=== PATIENT | male | born 1955 | race Two or more races ===

== ENCOUNTER 2018-07-16 00:44 | Emergency (ER) | payer MEDICAID, OTHER ==
[~2018-07-16] VITALS: Ht 170.2 cm; Wt 68.0 kg
--- NOTE | 2018-07-16 00:50 | NUR ---
BIB RA. TO ER BED 7. AAOX3. NAD. BREATHING EVEN AND UNLABORED. PT WAS FOUND DOWN ON THE STREET WHICH WAS REPORTED BY BY STANDERS. POSSIBLE ETOH. PT IS TANZANIAN SPEAKING, SUE FROM ADMISSION TRANSLATED FOR PT.
[2018-07-16 01:18] LABS: BASOPHILS # (AUTO) 0.1 /CMM (0.0-0.2); BASOPHILS % (AUTO) 0.5 % (0.0-2.0); WHITE BLOOD COUNT (AUTO) 12.7 K/uL (4.3-11.0)
[2018-07-16 01:21] LABS: HEMATOCRIT 40 % (39-51); HEMOGLOBIN 13.5 g/dL (13.5-17.5); LYMPHOCYTES # (AUTO) 1.3 /CMM (0.8-4.8); LYMPHOCYTES % (AUTO) 10.4 % (20.0-44.0); MEAN CORPUSCULAR HGB CONC 34 g/dl (31.0-36.0); MEAN CORPUSCULAR VOLUME 88 fL (80-96); MONOCYTES % (AUTO) 7.5 % (2.0-12.0); NEUTROPHILS # (AUTO) 6.2 /CMM (1.8-8.9); PLATELET COUNT (AUTO) 211 /CMM (150-450); RED BLOOD CELL COUNT(AUTO) 4.59 MIL/uL (4.5-6.0)
[2018-07-16 01:23] LABS: EOSINOPHILS % (AUTO) 32.6 % (0.0-6.0)
[2018-07-16 01:28] LABS: CALCIUM, SERUM 8.5 mg/dL (8.5-10.1); CARBON DIOXIDE 28 mmol/L (21-32); CHLORIDE 100 mmol/L (98-107); CREATININE 0.7 mg/dL (0.6-1.3); GLUCOSE 125 mg/dL (74-106); SODIUM SERUM 134 mmol/L (136-145); UREA NITROGEN, BLOOD 7 mg/dL (7-18)
[2018-07-16 01:39] LABS: ALANINE AMINOTRANSFERASE 21 U/L (12-78); ALBUMIN 3.4 g/dL (3.4-5.0); ALCOHOL, BLOOD < 3 mg/dL (0-0); ALKALINE PHOSPHATASE 106 U/L (46-116); ASPARTATE AMINOTRANSFERASE 20 U/L (15-37); BILIRUBIN,DIRECT 0.1 mg/dL (0.0-0.2); BILIRUBIN,TOTAL 0.3 mg/dL (0.2-1.0)
[2018-07-16 01:40] LABS: ACETAMINOPHEN 0 ug/ml (10-30); SALICYLATE 0.5 mg/dL (2.8-20.0)
[2018-07-16 01:54] LABS: EOSINOPHILS % (MANUAL) 25 % (0-4); LYMPHOCYTES % (MANUAL) 10 % (16-48); MONOCYTES % (MANUAL) 4 % (0-11.0); NEUTROPHILS % (MANUAL) 61 (42-76)
--- NOTE | 2018-07-16 01:55 | NUR ---
AT BEDSIDE FOR EVAL.
[2018-07-16] MEDS: ACETAMINOPHEN ES 500 MG TABLET PO ONE (02:00)
[2018-07-16] MEDS ORDERED: ACETAMINOPHEN ES 500 MG TABLET ONE (02:05)
--- NOTE | 2018-07-16 02:19 | NUR ---
URINE SPECIMEN COLLECTED SENT TO LAB
[2018-07-16 02:30] LABS: APPEARANCE,URINE Clear (CLEAR); BILIRUBIN,URINE Negative (NEGATIVE); BLOOD, URINE Negative Ery/uL (NEGATIVE); COLOR,URINE Yellow (YELLOW); KETONES,URINE Negative (NEGATIVE); LEUKOCYTE ESTERASE ,URINE Negative (NEGATIVE); NITRITE, URINE Negative (NEGATIVE); PH,URINE 7.5 (5.0-8.0); PROTEIN,URINE Trace mg/dl (NEGATIVE); UGLUCOSE Negative (NEGATIVE); UROBILINOGEN,URINE 0.2 EU/dL (0.2)
[2018-07-16 02:47] LABS: BACTERIA,URINE None seen /HPF (None Seen); RBC,URINE 0-2 /HPF (0-2); SQUAMOUS EPITHELIAL CELL,UR Few /HPF (None Seen); WBC,URINE 0-2 /HPF (0-3)
[2018-07-16 05:40] VITALS: BP 126/70
--- NOTE | 2018-07-16 05:41 | NUR ---
PT GIVEN CLOTHES AND FOOD.
--- NOTE | 2018-07-16 05:45 | NUR ---
SUE FROM ADMISSION AT BEDSIDE TO TRANSLATE FOR PT. PT REFUSED TO HAVE SOCIAL SERVICE ASSISTANCE FOR FDC PLACEMENT. PER PT HE WANTS TO GO BACK TO HIS PRIOR LIVING ARRANGEMENT WHICH IS IN THE STREET. PT WAS PROVIDED CLOTHING, FOOD AND RESOURCE FOR FDC. PT HAVE ALREADY SIGNED WAIVER WITH ART EARLIER DURING THE SHIFT. PT AMBULATED OWN HIS OWN WITHOUT ASSISTANCE OUT OF THE ER.
--- NOTE | 2018-07-16 06:11 | NUR ---
Patient discharged to his prior living arrangement in stable condition. Written and verbal after care instructions given. Patient verbalizes understanding of instruction.
--- NOTE | 2018-07-16 06:20 | NUR ---
John manrique in [place] - 07/16/18 at 0621 by RADHA Patient discharged to home in stable condition. Written and verbal after care instructions given. Patient verbalizes understanding of instruction.
== END 2018-07-16 06:11 | disposition home or self-care (01) ==
LOC: EDBD → ER 00:45
DX: F15.90 Other stimulant use, unspecified, uncomplicated (principal)
CPT/HCPCS: 36415; 80048; 80076; 80305; 80307; 80329; 81001; 85025; 99283; G0480; 81000-TC

== ENCOUNTER 2018-07-16 07:03 | Inpatient (IN) | payer MEDICAID ==
[~2018-07-16] VITALS: Ht 170.2 cm; Wt 59.0 kg
--- NOTE | 2018-07-16 07:06 | NUR ---
PT FOUND LYING ON WAITING ROOM FLOOR on his URINE. FOREHEAD LAC NOTED. PT OPENS EYES SPONTANEOUSLY, NON VERBAL. RR is even and unlabored with nad noted. Skin is warm and dry. Dr Pisano at BS for eval.
--- NOTE | 2018-07-16 07:07 | NUR ---
Patient placed on the monitor and hospital gown.
--- NOTE | 2018-07-16 07:09 | NUR ---
CV=[id number], Dr Pisano made aware and notified.
[2018-07-16] MEDS ORDERED: CT SWABBABLE VALVE TRANS SET 1 EA INFUS.SET MC ONE (07:23)
[2018-07-16] MEDS ORDERED: IV NS 0.9% 250 ML IV ONE (07:23)
[2018-07-16] MEDS ORDERED: IOHEXOL-350 100 ML VIAL IV ONE (07:23)
[2018-07-16 07:35] LABS: BASOPHILS % (AUTO) 0.5 % (0.0-2.0); EOSINOPHILS % (AUTO) 22.1 % (0.0-6.0); HEMATOCRIT 44 % (39-51); HEMOGLOBIN 14.7 g/dL (13.5-17.5); LYMPHOCYTES # (AUTO) 1.1 /CMM (0.8-4.8); LYMPHOCYTES % (AUTO) 10.9 % (20.0-44.0); MEAN CORPUSCULAR HGB CONC 33 g/dl (31.0-36.0); MEAN CORPUSCULAR VOLUME 88 fL (80-96); MONOCYTES # (AUTO) 0.9 /CMM (0.1-1.30); MONOCYTES % (AUTO) 8.4 % (2.0-12.0); NEUTROPHILS % (AUTO) 58.1 % (43.0-81.0); PLATELET COUNT (AUTO) 234 /CMM (150-450); RED BLOOD CELL COUNT(AUTO) 4.97 MIL/uL (4.5-6.0); WHITE BLOOD COUNT (AUTO) 10.3 K/uL (4.3-11.0)
[2018-07-16 07:38] LABS: CALCIUM, SERUM 8.9 mg/dL (8.5-10.1); CARBON DIOXIDE 24 mmol/L (21-32); CHLORIDE 99 mmol/L (98-107); CREATININE 0.7 mg/dL (0.6-1.3); GLUCOSE 120 mg/dL (74-106); POTASSIUM 3.9 mmol/L (3.5-5.1); SODIUM SERUM 133 mmol/L (136-145); UREA NITROGEN, BLOOD 6 mg/dL (7-18)
[2018-07-16 07:43] LABS: ALANINE AMINOTRANSFERASE 19 U/L (12-78); ALBUMIN 3.7 g/dL (3.4-5.0); ALKALINE PHOSPHATASE 104 U/L (46-116); ASPARTATE AMINOTRANSFERASE 23 U/L (15-37); BILIRUBIN,DIRECT 0.1 mg/dL (0.0-0.2); BILIRUBIN,TOTAL 0.5 mg/dL (0.2-1.0); TOTAL PROTEIN, SERUM 7.4 g/dL (6.4-8.2)
--- NOTE | 2018-07-16 07:45 | NUR ---
STARTED W TELESTROKE W DR JUAREZ FERNANDEZ, VP SOFTWARE SUPPORT AT BEDSIDE
--- NOTE | 2018-07-16 07:56 | NUR ---
PT IS NOT A CANDIDATE FOR TPA ACCORDING TO DR. JIM PIZARRO.
--- NOTE | 2018-07-16 08:03 | NUR ---
SUPERVISOR FRAME ASSEMBLY AT BEDSIDE FOR XRAY.
[2018-07-16 08:04] LABS: CHOLESTEROL 168 mg/dL (<200); HDL CHOLESTEROL 66 mg/dL (40-60); LDL 91 mg/dL (0-99); TRIGLYCERIDES 75 mg/dL (30-150)
--- NOTE | 2018-07-16 08:07 | NUR ---
WOUND CLEANING AND DRESSING DONE BY KICK BOXER.
[2018-07-16 08:08] LABS: BAND % (MANUAL) 1 % (0.0-5.0); EOSINOPHILS % (MANUAL) 25 % (0-4); LYMPHOCYTES % (MANUAL) 5 % (16-48); MONOCYTES % (MANUAL) 10 % (0-11.0); NEUTROPHILS % (MANUAL) 59 (42-76)
[2018-07-16] MEDS ORDERED: TDAP [DIPH/PERTUSSIS/TET] 0.5 ML VIAL IM ONE ×2 (08:30→08:39)
--- NOTE | 2018-07-16 08:55 | NUR ---
EPISODE OF MD CECE AWARE.
[2018-07-16] MEDS ORDERED: LORAZEPAM INJ 2 MG/ML VIAL ONE ×3 (08:56→09:24)
--- NOTE | 2018-07-16 09:11 | NUR ---
ATIVAN 1MG IVP GIVEN VERBAL ORDERED BY .
--- NOTE | 2018-07-16 09:12 | NUR ---
PT STILL SEIZING, AT BEDSIDE FOR EVAL.
--- NOTE | 2018-07-16 09:15 | NUR ---
2ND ATIVAN 1MG IVP GIVEN VERBAL ORDERED BY.
--- NOTE | 2018-07-16 09:28 | NUR ---
3RD ATIVAN 1MG IVP GIVEN VERBAL ORDERED BY .
[2018-07-16] MEDS ORDERED: LORAZEPAM INJ 2 MG/ML VIAL IV ONE (09:30)
[2018-07-16] MEDS ORDERED: KEPPRA 1000 MG in IV NS 100 ML IV ONE (09:30)
--- NOTE | 2018-07-16 10:01 | NUR ---
Can't waste the 2nd Ativan pulled out in the omnicell and Wandy, pharmacist made aware.
--- NOTE | 2018-07-16 10:41 | NUR ---
MIDLINE INSERTED AT L UPPER ARM BY PICC NURSE.
--- NOTE | 2018-07-16 10:48 | NUR ---
PANEL ON-CALL PAGED
--- NOTE | 2018-07-16 11:00 | NUR ---
SHOW DOG TRAINER AT BEDSIDE FOR XRAY.
--- NOTE | 2018-07-16 11:08 | NUR ---
DR JETT S/W DR MILLS
--- NOTE | 2018-07-16 11:15 | NUR ---
DR. HAYES AT BEDSIDE FOR EVAL.
--- NOTE | 2018-07-16 11:35 | NUR ---
PT IS WHEELED TO CT SCAN [facility]IA [facility].
[2018-07-16] MEDS ORDERED: IV NS 0.9% 1,000 ML IV PRN (11:39)
[2018-07-16 12:00] VITALS: BP 137/85
[2018-07-16] MEDS ORDERED: MAG HYDROX/AL HYDROX/SIMETH 30 ML UDC PO PRN ×2 (12:00→13:15)
[2018-07-16] MEDS ORDERED: ACETAMINOPHEN 325 MG TABLET PO PRN ×2 (12:00→13:15)
[2018-07-16] MEDS ORDERED: HYDROCODONE/APAP 5/325MG 1 EACH TABLET PO PRN ×2 (12:00→13:15)
[2018-07-16] MEDS ORDERED: Z GUARD REMEDY 2 OZ OINT TP PRN ×2 (12:00→13:15)
[2018-07-16] MEDS ORDERED: ONDANSETRON HCL/PF 4 MG/2 ML VIAL IVP PRN ×2 (12:00→13:15)
[2018-07-16] MEDS ORDERED: ZOLPIDEM TARTRATE 5 MG TABLET PO PRN ×2 (12:00→13:15)
[2018-07-16] MEDS ORDERED: MAGNESIUM HYDROXIDE 30 ML UDC PO PRN ×2 (12:00→13:15)
[2018-07-16] MEDS ORDERED: LORAZEPAM INJ 2 MG/ML VIAL IV PRN ×2 (12:00→13:15)
--- NOTE | 2018-07-16 12:12 | NUR ---
GOT BED 119-2
--- NOTE | 2018-07-16 12:37 | NUR ---
REPORT GIVEN TO AUDREY MILLS FOR KENNETH.
[2018-07-16 13:00] VITALS: BP 137/85
--- NOTE | 2018-07-16 13:00 | NUR ---
RADHA FREE LANCE ARTIST NOTES RECEIVED PT FROM ER TO ROOM 119-2.NOTED WITH SLEEPY AROUSABLE WITH PAINFUL STIMULI.ON TELE HR IS 78 WITH SR.ON ROOM AIR,TOLERATING WELL.NO SOB AND ACUTE DISTRESS NOTED.NOTED WITH PT CANNOT ANSWER THE QUESTIONS.LEFT UA MIDLINE G18 AND LEFT FA G20,SL IS PRESENT.SITE IS CLEAN,DRY AND INTACT.PADDED THE SIDERAILS X4 WITH PADS.PT IS CONFUSED.BELONGING LIST HAS SIGNED BY THE ER STAFF,KATHERINE.VITAL SIGNS CHECKED AND RECORDED,STABLE.NO SEIZURE NOTED FOR NOW.SKIN ASSESSMENT IS DONE AND NOTED WITH INCISION ON RIGHT FOREHEAD WITH 3 ANKUR AND SKIN TEAR ON LEFT SIDE OF NOSE.PHOTO HAS TAKEN AND PLACED IN THE CHART.SAFETY IS MAINTAINED AT ALL TIMES.BED IS IN LOW POSITION ND LOCKED.CALL LIGHT IS WITHIN REACH.SIDERAILS X4 IS PRESENT.WILL CONTINUE TO MONITOR THE PT CLOSELY.
[2018-07-16] MEDS: IV NS 0.9% 1,000 ML IV PRN (14:01)
[2018-07-16 16:00] VITALS: BP 117/81
--- NOTE | 2018-07-16 18:37 | NUR ---
RADHA RN CLOSING NOTES PT IS SLEEPING ON THE BED.AROUSABLE WITH PAINFUL STIMULI.PADDED SIDERAILS X4 IS ON.NO SIGNIFICANT CHANGES NOTED IN THE SHIFT.RESPIRATION IS EVEN AND NONLABORED.IV LINE 0.9%NS @75ML/HR IS RUNNING.ENDORSED TO TUBE SIZER AND CUTTER OPERATOR AUDREY KELLY FOR KENNETH.
--- NOTE | 2018-07-16 19:00 | NUR ---
PRESERVATIONIST NOTES RECEIVED PTS IN BED AWAKE AND RESPONSIVE.V/STABLE ANG AFEBRILE, ALL DUE MED GIVEN ORDERED CALL LIGHT WITHIN RE KEPT PTS CLEAN DRY AND COMFORTABLE, ALL NEEDS ATTENDED TOO, PTS WITH IVF OF NS AT 100CC/HR
[2018-07-16 20:00] VITALS: BP 127/58
[2018-07-17] VITALS (9 sets, daily range): BP systolic 92–130; BP diastolic 59–85
[2018-07-17] MEDS: IV NS 0.9% 1,000 ML IV PRN ×2 (03:40→17:49)
--- NOTE | 2018-07-17 06:35 | NUR ---
STEWARD/STEWARDESS THIRD CLASS NOTES PTS REMAINS IN BED ON R/A ON TELE SR ON THE MONITOR , PTS REMAINS NPO, CONTINUE ON NS AT 75CC/HR INFUSING WELL , NO EPISODE OF SEIZURE NOTED , NO SOB NO DISTRESS NOTED , KEPT PTS COMFORTABLE , WILL ENDORSE TO RN DAY SHIFT FOR CONTINUITY OF CARE.
[2018-07-17] MEDS: LEVETIRACETAM SOL (5 ML) 100 MG/ML UDC PO SCH ×2 (09:11→20:41)
--- NOTE | 2018-07-17 11:57 | NUR ---
CHILD NUTRITION MANAGER OPENING NOTES PTS RECEIVED LYING IN BED AWAKE AND IN GOOD SPIRITS. A/O X 4, NO SOB OR ACUTE DISTRESS NOTED. ON R/A , ON TELE SR ON THE MONITOR , SCOUT MIDLINE INTACT AND PATENT RUNNING NS AT 75CC/HR. NO EPISODE OF SEIZURE NOTED DURING PREVIOUS SHIFT. PT KEPT COMFORTABLE , WILL CONTINUE TO MONITOR.
--- NOTE | 2018-07-17 12:57 | NUR ---
Social service consult requested for homelessness. Pt. is a 50 year old male who was admitted to [facility] for status epilepticus. SW met with pt. at bedside. Pt. was laying in his bed and looked disheveled. Pt. appeared tired and confused. Pt. is oriented x 3. Pt. states that he lives in a tent on [address] [facility] [address] [facility]. Pt. denies drug, marijuana, and cigarette use. SW inquired with pt. regarding his alcohol use and pt. states, I buy 2 40oz. beers, I drink 1 in a day and save the other one for later. But people always steal the other one from me before I can drink it. Pt. states he has been drinking since 1981. Pt. is not ready to change his drinking habits. SW inquired with pt. about his homelessness, and Pt. states that has been living in the streets for a year a half. Pt. shared that he used to live with his girlfriend until they broke up. Pt. states he has many daughters but they dont want him to live with them because of his drinking. Pt.s emergency contact is his daughter, Jacqui Mg . Pt. states he receives close to $1,000 a month from [employer] but he does not want to access that money because he states I will get robbed when Im sleeping. DAIANA offered pt. homeless group home referrals and substance treatment program referrals, but pt. states, I prefer to live on the streets, I feel more comfortable there. Pt. denied a history of psychiatric diagnosis, and pt. denied suicidal ideation at this time. highway worker provide the following additional alcohol treatment program and group home referrals: [facility], [address] [facility] [address], [facility], [address] [facility]. [address], [facility] [address], and [facility] [address] [facility]. [place] [phone]. in case pt. has more motivation in the future. Pt. will require a TAP card upon discharge. Homeless Waiver has been signed by pt. and placed in his chart. No other services needed at this time. DAIANA is available if needed.
--- NOTE | 2018-07-17 18:48 | NUR ---
PRODUCT OPERATIONS ASSOCIATE CLOSING NOTES PTS LYING IN BED AWAKE AND IN GOOD SPIRITS. A/O X 4, NO SOB OR ACUTE DISTRESS NOTED. ON R/A , ON TELE SR 80'S , SCOUT MIDLINE INTACT AND PATENT RUNNING NS AT 75CC/HR. SOFT DIET. NO EPISODE OF SEIZURE NOTED DURING SHIFT. PT KEPT CLEAN AND COMFORTABLE , CARE ENDORSED TO STUDIO OPERATION ENGINEER RN.
--- NOTE | 2018-07-17 20:00 | NUR ---
outbound telemarketer notes received pts in bed a/o x3 able to make needs known , on tele sr on the monitor on r/a sating 100%, no sob no distress noted pts continue on iv fluids ns at 75cc /hr infusing well , on left upper arm midline intact and patent , all due meds given with no ase noted , no seizure activity noted , bed alarm on bed in low position and locked for safety bilateral 1/2 sr up with padded to prevent injury d/t seizure d/o, v/s stable afebrile all needs attended too call light within reach kept pts clean dry and comfortable.will continue to monitor pts.
[2018-07-18] VITALS: BP 130/80
[2018-07-18 03:44] VITALS: BP 128/80
[2018-07-18 04:00] VITALS: BP 128/80
--- NOTE | 2018-07-18 06:22 | NUR ---
telephone solicitor supervisor notes pts remains in bed , v/s stable afebrile , remains on ivf of ns at 75cc/hr , pts comfortable no sob no distress noted .will endorse to rn day shift for continuity of care.
--- NOTE | 2018-07-18 07:38 | NUR ---
Patient awake, alert rooting through his belongings. Urinated 300ml of clear, yellow urine with foul odor at this time. Vitaly Manriquez RN
[2018-07-18 08:00] VITALS: BP 129/78
[2018-07-18] MEDS: LEVETIRACETAM SOL (5 ML) 100 MG/ML UDC PO SCH (09:13)
[2018-07-18] MEDS: IV NS 0.9% 1,000 ML IV PRN (09:13)
--- NOTE | 2018-07-18 09:23 | NUR ---
WOUND CARE CONSULT: PT PRESENTS CONTINENT AND AMBULATORY WITH STAPLED LACERATION TO FOREHEAD, PRESENT ON ADMISSION. WILL SEE PRN.
--- NOTE | 2018-07-18 11:34 | NUR ---
Patient transportation arrangement. Given medication prescription. Patient to discharge to [address] [place] [phone]. Vitaly Manriquez RN
[2018-07-18 16:00] VITALS: BP 119/70
--- NOTE | 2018-07-18 18:52 | NUR ---
Patient refused wound care picture for chart. Removal of identification band. Removal of patient midline. Patient has intact bandage in place. Vitaly Manriquez RN
== END 2018-07-18 18:45 | disposition home or self-care (01) | DRG 53 ==
LOC: ER 07:05 → EDBD 13:22 → TELE-TD 13:22 → TELE1 19:48 → MEDSG1 07-18 10:00
PROVIDERS: ADMIT Internal Medicine; ATTEND Internal Medicine
PROC: B547ZZA Ultrasonography of Left Subclavian Vein, Guidance (ICD-10-PCS; principal; 2018-07-16)
PROC: 05H633Z Insertion of Infusion Device into Left Subclavian Vein, Percutaneous Approach (ICD-10-PCS; principal; 2018-07-16)
DX: R56.9 Unspecified convulsions (principal); E87.1 Hypo-osmolality and hyponatremia; G93.89 Other specified disorders of brain; S09.90XA Unspecified injury of head, initial encounter; F10.10 Alcohol abuse, uncomplicated; S01.81XA Laceration without foreign body of other part of head, initial encounter; X58.XXXA Exposure to other specified factors, initial encounter; Y92.89 Other specified places as the place of occurrence of the external cause
CPT/HCPCS: 36415; 36569; 70450-TC; 70496-TC; 71045-TC; 80048-TC; 80061-TC; 80076-TC; 82962-TC; 84484-TC; 85025-TC; 85730-TC; 87081-TC; 90715; 92521; 92526; A6402; A6403; G0378; J1953; J2060; J7030; J7050; Q9967

== ENCOUNTER 2020-12-31 15:29 | Inpatient (IN) | payer MEDICAID ==
[~2020-12-31] VITALS: Ht 157.5 cm; Wt 65.3 kg
--- NOTE | 2020-12-31 16:00 | NUR ---
TO ER BED 2, [id number] FOR GEN WEAKNESS, PT FOUND DOWN IN PARKING LOT POSS FALL PER EMS. ALERT TO NAME AND PLACE, COULDN'T TELL WHY HE WAS AT THE PARKING LOT. CONNECTED TO MONITOR
[2020-12-31 16:53] LABS: CALCIUM, SERUM 8.7 mg/dL (8.5-10.1); CARBON DIOXIDE 24 mmol/L (21-32); CHLORIDE 101 mmol/L (98-107); CREATININE 0.8 mg/dL (0.6-1.3); GLUCOSE 99 mg/dL (74-106); POTASSIUM 3.6 mmol/L (3.5-5.1); SODIUM SERUM 134 mmol/L (136-145); UREA NITROGEN, BLOOD 10 mg/dL (7-18)
[2020-12-31 17:05] LABS: ALANINE AMINOTRANSFERASE 17 U/L (12-78); ALBUMIN 3.4 g/dL (3.4-5.0); ALKALINE PHOSPHATASE 74 U/L (46-116); ASPARTATE AMINOTRANSFERASE 14 U/L (15-37); BILIRUBIN,TOTAL 0.2 mg/dL (0.2-1.0); TOTAL PROTEIN, SERUM 6.9 g/dL (6.4-8.2)
[2020-12-31 17:06] LABS: ACETAMINOPHEN < 10 ug/ml (10-30); ALCOHOL, BLOOD < 3 mg/dL (0-0)
--- NOTE | 2020-12-31 17:08 | NUR ---
COVID SWAB DONE AND SENT TO LAB
[2020-12-31 17:14] LABS: BASOPHILS # (AUTO) 0.1 K/uL (0.0-0.2); BASOPHILS % (AUTO) 0.8 % (0.0-2.0); HEMATOCRIT 39 % (39-51); HEMOGLOBIN 12.9 g/dL (13.5-17.5); LYMPHOCYTES # (AUTO) 2.2 K/uL (0.8-4.8); LYMPHOCYTES % (AUTO) 16.4 % (20.0-44.0); MEAN CORPUSCULAR HGB CONC 33 g/dl (31.0-36.0); MEAN CORPUSCULAR VOLUME 89 fL (80-96); MONOCYTES # (AUTO) 1.6 K/uL (0.1-1.30); MONOCYTES % (AUTO) 11.8 % (2.0-12.0); NEUTROPHILS # (AUTO) 4.8 K/uL (1.8-8.9); NEUTROPHILS % (AUTO) 36.4 % (43.0-81.0); PLATELET COUNT (AUTO) 215 K/uL (150-450); RED BLOOD CELL COUNT(AUTO) 4.42 MIL/uL (4.5-6.0); WHITE BLOOD COUNT (AUTO) 13.3 K/uL (4.3-11.0)
[2020-12-31 17:18] LABS: EOSINOPHILS % (AUTO) 34.6 % (0.0-6.0)
[2020-12-31 17:31] LABS: BAND % (MANUAL) 1 % (0.0-5.0); EOSINOPHILS % (MANUAL) 31 % (0-4); LYMPHOCYTES % (MANUAL) 15 % (16-48); MONOCYTES % (MANUAL) 10 % (0-11.0); NEUTROPHILS % (MANUAL) 43 (42-76)
--- NOTE | 2020-12-31 18:33 | NUR ---
URINE COLLECTED AND SENT TO LAB
--- NOTE | 2020-12-31 19:26 | NUR ---
REPORT GIVE TO ANGELIC REYES RN FOR KENNETH
[2020-12-31] MEDS ORDERED: LEVETIRACETAM (500MG) 1,000 MG in IV NS 0.9% 100 ML IV ONE (19:30)
[2020-12-31] MEDS ORDERED: LEVETIRACETAM (500MG) 500 MG/5 ML VIAL IV ONE (19:37)
[2020-12-31 20:10] LABS: BILIRUBIN,URINE SMALL (NEGATIVE); COLOR,URINE YELLOW (YELLOW); LEUKOCYTE ESTERASE ,URINE NEGATIVE (NEGATIVE); NITRITE, URINE NEGATIVE (NEGATIVE); PH,URINE 6.5 (5.0-8.0); PROTEIN,URINE NEGATIVE (NEGATIVE); UGLUCOSE NEGATIVE (NEGATIVE); UROBILINOGEN,URINE 0.2 EU/dL (0.2)
[2020-12-31 20:22] LABS: BACTERIA,URINE RARE /HPF (None Seen); MUCUS,URINE Few /LPF (None Seen); RBC,URINE 0-2 /HPF (0-2); WBC,URINE 0-2 /HPF (0-3)
[2020-12-31] MEDS: LEVETIRACETAM (500MG) 500 MG in IV NS 0.9% 100 ML IV SCH (20:30)
[2020-12-31] MEDS ORDERED: IV NS 0.9% 1,000 ML IV PRN (20:30)
[2020-12-31] MEDS ORDERED: MAG HYDROX/AL HYDROX/SIMETH 30 ML UDC PO PRN (20:30)
[2020-12-31] MEDS ORDERED: MAGNESIUM HYDROXIDE 30 ML UDC PO PRN (20:30)
[2020-12-31] MEDS ORDERED: ACETAMINOPHEN 325 MG TABLET PO PRN (20:30)
[2020-12-31] MEDS ORDERED: Z GUARD REMEDY 2 OZ OINT TP PRN (20:30)
[2020-12-31] MEDS ORDERED: LORAZEPAM INJ 2 MG/ML VIAL IV PRN (20:30)
[2020-12-31] MEDS ORDERED: ONDANSETRON HCL/PF 4 MG/2 ML VIAL IVP PRN (20:30)
[2020-12-31] MEDS ORDERED: Folic acid 1 MG in IV D5W 50 ML IV SCH (21:00)
[2020-12-31] MEDS ORDERED: Thiamine 100 MG in IV D5W 50 ML IV SCH (21:00)
[2021-01-01] MEDS ORDERED: Thiamine 100 MG/ML VIAL ONE (03:34)
[2021-01-01] MEDS ORDERED: Folic acid 1 MG/0.2 ML VIAL ONE (03:35)
[2021-01-01 06:30] LABS: BASOPHILS # (AUTO) 0.1 K/uL (0.0-0.2); BASOPHILS % (AUTO) 0.8 % (0.0-2.0); HEMATOCRIT 43 % (39-51); HEMOGLOBIN 14.2 g/dL (13.5-17.5); LYMPHOCYTES # (AUTO) 2.1 K/uL (0.8-4.8); LYMPHOCYTES % (AUTO) 18.4 % (20.0-44.0); MEAN CORPUSCULAR HGB CONC 33 g/dl (31.0-36.0); MEAN CORPUSCULAR VOLUME 88 fL (80-96); MONOCYTES # (AUTO) 1.4 K/uL (0.1-1.30); MONOCYTES % (AUTO) 11.7 % (2.0-12.0); NEUTROPHILS # (AUTO) 3.8 K/uL (1.8-8.9); NEUTROPHILS % (AUTO) 32.8 % (43.0-81.0); PLATELET COUNT (AUTO) 218 K/uL (150-450); RED BLOOD CELL COUNT(AUTO) 4.85 MIL/uL (4.5-6.0); WHITE BLOOD COUNT (AUTO) 11.6 K/uL (4.3-11.0)
[2021-01-01 06:33] LABS: EOSINOPHILS % (AUTO) 36.3 % (0.0-6.0)
[2021-01-01 07:22] LABS: THYROID STIMULATING HORMONE 5.144 uIU/mL (0.358-3.74)
[2021-01-01 07:23] LABS: CALCIUM, SERUM 8.9 mg/dL (8.5-10.1); CREATININE 0.7 mg/dL (0.6-1.3); MAGNESIUM 1.9 mg/dL (1.8-2.4); POTASSIUM 3.9 mmol/L (3.5-5.1)
[2021-01-01 09:00] VITALS: BP 138/75
--- NOTE | 2021-01-01 09:12 | NUR ---
wheeled patient via gurney accompanied by RN and emt in no distress. RN assigned to patient at bedside to assume care.
--- NOTE | 2021-01-01 09:15 | NUR ---
CARRIER WASHER NOTES RECEIVED PT FROM ER BY SAFIA. PT ABLE TO AMBULATE TO THE BED. PT ON RA WITH O2 SATURATION OF 100%, RR 19, BP 138/75, HR 63, TEMPERATURE 98.0. PT COMPLAINS OF GENERALIZED PAIN. SKIN IS TACT WITH LEFT WRIST 22G, HOWEVER NOT ABLE TO FLUSH. A/O X3, PT EXPRESSES THAT HE HAS NO DESIRE TO LIVE. PER MD, OKAY TO ORDER PSYCH EVAL. MIDLINE ORDERED.
[2021-01-01] MEDS: PANTOPRAZOLE 40 MG VIAL IV SCH ×2 (09:25→12:05)
[2021-01-01 12:00] VITALS: BP 128/60
[2021-01-01] MEDS: LEVETIRACETAM (500MG) 500 MG in IV NS 0.9% 100 ML IV SCH ×2 (12:05→20:46)
[2021-01-01 13:00] VITALS: BP 128/60
[2021-01-01 13:10] LABS: EOSINOPHILS % (MANUAL) 33 % (0-4); LYMPHOCYTES % (MANUAL) 18 % (16-48); MONOCYTES % (MANUAL) 12 % (0-11.0); NEUTROPHILS % (MANUAL) 37 (42-76)
[2021-01-01 16:00] VITALS: BP 117/70
[2021-01-01 17:00] VITALS: BP 117/70
--- NOTE | 2021-01-01 19:31 | NUR ---
RN CLOSING NOTE PATIENT IN BED, AWAKE. PATIENT ON ROOM AIR WITH NO SIGNS OF LABORED BREATHING AT THIS TIME. BED LOCKED AND IN LOWEST POSITION, 3 SIDE RAILS UP, CALL LIGHT WITHIN REACH. WILL ENDORSE TO CORK FLOOR INSTALLER NURSE
[2021-01-01] MEDS: THIAMINE HCL 100 MG TABLET PO SCH (20:46)
[2021-01-01] MEDS: FOLIC ACID 1 MG TABLET PO SCH (20:46)
[2021-01-01 21:00] VITALS: BP 127/73
--- NOTE | 2021-01-01 22:30 | NUR ---
RN NOTE PATIENT ALERT AND ORIENTED X2-3. ON ROOM AIR, O2 SAT 96%. RESPIRATIONS EVEN AND UNLABORED. DENIES ANY PAIN OR DISCOMFORT. IV ACCESS ON MICHAEL MIDLINE, PATENT AND INTACT. BED LOCKED AND IN LOWEST POSITION. CALL LIGHT WITHIN REACH. ALL NEEDS ANTICIPATED. Addendum: 01/01/21 at 2233 by DONNA HUBBARD RN LATE ENTRY, OPENING NOTE 1945
[2021-01-02 01:00] VITALS: BP 108/70
[2021-01-02 05:00] VITALS: BP 117/65
--- NOTE | 2021-01-02 06:49 | NUR ---
RN NOTE PATIENT RESTING IN BED. ON ROOM AIR, O2 SAT 96%. NO S/S OF ACUTE RESPIRATORY DISTRESS. DENIES ANY PAIN OR DISCOMFORT. IV ACCESS ON MICHAEL MIDLINE, PATENT AND INTACT. NO SIGNIFICANT CHANGES DURING THIS SHIFT. BED LOCKED AND IN LOWEST POSITION. CALL LIGHT WITHIN REACH. WILL ENDORSE TO AM SHIFT.
--- NOTE | 2021-01-02 07:30 | NUR ---
MANAGER VALUATION AM NOTES RECEIVED PT IN BED, ASLEEP. RESPONDS TO NAME AND TOUCH, AOX 3, GREENLANDIC SPEAKING, ON ROOM AIR 95% O2 SAT, RESPIRATION UNLABORED, SR HR 71, DENIES PAIN, MICHAEL MIDLINE FLUSHES WELL, SITE CLEAR, CDI DRESSING, SKIN IS INTACT, CLEAR LIQUID, INDEPENDENT OF BED MOBILITY. USES URINAL. PER CONTRACTING ANALYST, PT EXPRESSES THAT HE HAS NO DESIRE TO LIVE. FOR PSYCH EVAL TODAY. BED REST FOR NOW, BED ALARM ON, BED LOW LOCKED, SR UPX 2. CALL LIGHT WITHIN REACH, INSTRUCTED TO CALL FOR ASSIST. WILL MONITOR
[2021-01-02 08:00] VITALS: BP_SYST 117; BP_SYST 122; BP_DIAS 60; BP_DIAS 69
[2021-01-02] MEDS: THIAMINE HCL 100 MG TABLET PO SCH (08:35)
[2021-01-02] MEDS: PANTOPRAZOLE 40 MG VIAL IV SCH (08:35)
[2021-01-02] MEDS: FOLIC ACID 1 MG TABLET PO SCH (08:35)
[2021-01-02] MEDS: LEVETIRACETAM (500MG) 500 MG in IV NS 0.9% 100 ML IV SCH (08:41)
--- NOTE | 2021-01-02 08:46 | NUR ---
SS consult requested for alcohol abuse. SS will follow up at a later time.
--- NOTE | 2021-01-02 09:30 | NUR ---
RN NOTES DUE MEDS GIVEN
[2021-01-02 12:00] VITALS: BP 122/70
--- NOTE | 2021-01-02 14:45 | NUR ---
RN NOTES PATIENT SEEN BY DR. MCINTOSH, PRESCRIBED WITH ZOLOFT AND ABILIFY
[2021-01-02 16:00] VITALS: BP 120/68
--- NOTE | 2021-01-02 17:39 | NUR ---
RN NOTES PER DR. BARBOZA CONTINUE WITH PREVIOUS DIET AT [facility]. ISOSOURCE 1.5 BOLUS 250 ML, FREE WATER FLUSH 200ML QID AND PUREED DIET WITH NECTAR THICKENED LIQUID Addendum: 01/02/21 at 1742 by KVNG VIVAS RN CORRECTION: DISREGARD THIS DOCUMENTATION INTENDED FOR ANOTHER PATIENT
[2021-01-02] MEDS: SERTRALINE HCL 25 MG TABLET PO SCH (18:02)
--- NOTE | 2021-01-02 18:47 | NUR ---
RN CLOSING NOTES PT IS LYING AND RESTING IN BED. RESPONDS TO NAME AND TOUCH, AOX 3, GREEK SPEAKING, ON ROOM AIR 95% O2 SAT, RESPIRATION UNLABORED, SR HR 71, PT DENIES PAIN, MICHAEL MIDLINE FLUSHES WELL, SITE CLEAR, CDI DRESSING, SKIN IS INTACT, CLEAR LIQUID, INDEPENDENT OF BED MOBILITY. USES URINAL. PER CISCO ENGINEER, PT EXPRESSES THAT HE HAS NO DESIRE TO LIVE. PSYCH CONSULT DONE TODAY. BED REST FOR NOW, BED ALARM ON, BED LOW LOCKED, SR UPX 2. CALL LIGHT WITHIN REACH, INSTRUCTED TO CALL FOR ASSIST. ALL DUE MEDICATIONS GIVEN AND PATIENT REMAINED STABLE THROUGHOUT SHIFT. WILL ENDORSE TO CISCO ENGINEER RN.
--- NOTE | 2021-01-02 19:00 | NUR ---
RN NOTES RECEIVED REPORT FROM MORNING NURSE. PATIENT IN BED AWAKE MACANESE SPEAKING. NO SIGN OF DISTRESS AND SOB NOTED. WITH IV ACCESS ON R UA G 18 PATENT FLUSHES WELL. PATIENT USES URINAL AND ABLE TO MAKE NEEDS KNOWN. ALL SAFETY MEASURES IN PLACE, BED IN LOWEST POSITION AND LOCKED, HOB ELEVATED. CALL LIGHT WITHIN REACH. WILL CONTINUE TO CLOSELY MONITOR THE PATIENT.
[2021-01-02] MEDS ORDERED: LEVETIRACETAM (250 MG) 250 MG TABLET PO SCH (21:00)
[2021-01-02] MEDS: ARIPIPRAZOLE 5 MG TABLET PO SCH (21:22)
[2021-01-02 22:00] VITALS: BP 119/73
--- NOTE | 2021-01-03 06:47 | NUR ---
RN CLOSING NOTES PATIENT IN BED ASLEEP, LUXEMBOURGISH SPEAKING ABLE TO MAKE NEEDS KNOWN. STILL WITH SCOUT MIDLINE PATENT FLUSHES WELL. ON RA WITH 98% SAT.ALL DUE MEDS GIVEN ORDERED SAFETY PRECAUTION IN PLACE, HOB ELEVATED, BED ON LOWEST POSITION AND LOCKED, CALL LIGHT WITHIN REACH AT ALL TIMES.ENDORSED
--- NOTE | 2021-01-03 07:30 | NUR ---
CONE TREATER AM NOTES RECEIVED PT IN BED, ASLEEP. RESPONDS TO NAME AND TOUCH, AOX 3, FIJIAN SPEAKING, ON ROOM AIR 97% O2 SAT, RESPIRATION UNLABORED, SR HR 68, DENIES PAIN, MICHAEL MIDLINE FLUSHES WELL, SITE CLEAR, CDI DRESSING, SKIN IS INTACT, CLEAR LIQUID, INDEPENDENT OF BED MOBILITY. USES URINAL, AMBULATES WITH ASSIST AND WALKER. BED ALARM ON, BED LOW LOCKED, SR UPX 2. CALL LIGHT WITHIN REACH, INSTRUCTED TO CALL FOR ASSIST. WILL MONITOR
--- NOTE | 2021-01-03 07:30 | NUR ---
ASSISTANT TO THE DIRECTOR AM NOTES RECEIVED PT IN BED, ASLEEP. RESPONDS TO NAME AND TOUCH, AOX 3, TAMAZIGHT SPEAKING, ON ROOM AIR 95% O2 SAT, RESPIRATION UNLABORED, SR HR 71, DENIES PAIN, MICHAEL MIDLINE FLUSHES WELL, SITE CLEAR, CDI DRESSING, SKIN IS INTACT, CLEAR LIQUID, INDEPENDENT OF BED MOBILITY. USES URINAL. PER WELDING EQUIPMENT REPAIRER SUPERVISOR, PT EXPRESSES THAT HE HAS NO DESIRE TO LIVE. FOR PSYCH EVAL TODAY. BED REST FOR NOW, BED ALARM ON, BED LOW LOCKED, SR UPX 2. CALL LIGHT WITHIN REACH, INSTRUCTED TO CALL FOR ASSIST. WILL MONITOR
[2021-01-03 08:00] VITALS: BP 127/78
[2021-01-03] MEDS: PANTOPRAZOLE 40 MG TABLET.DR PO SCH (08:23)
[2021-01-03] MEDS: FOLIC ACID 1 MG TABLET PO SCH (08:23)
[2021-01-03] MEDS: LEVOTHYROXINE SODIUM 25 MCG TABLET PO SCH (08:23)
[2021-01-03] MEDS: THIAMINE HCL 100 MG TABLET PO SCH (08:23)
[2021-01-03] MEDS: SERTRALINE HCL 25 MG TABLET PO SCH (08:24)
[2021-01-03] MEDS: LEVETIRACETAM (250 MG) 250 MG TABLET PO SCH ×2 (08:25→21:39)
--- NOTE | 2021-01-03 09:30 | NUR ---
RN NOTES DUE MEDS GIVEN
--- NOTE | 2021-01-03 11:30 | NUR ---
"counseling services manager consult: Social service consult requested for possible homelessness and alcohol abuse. The pt. is 65 year old Surinamese male in [place] after being found with altered mental status & weakness in front of a bank. Per EMR, pt. has Hx. of seizures. SW met with patient bedside. SW conducted interview in Chinese. The pt. is currently A&O x 3 and makes appropriate eye contact. The pt. appears unkempt and remain calm and cooperative throughout interview. The pt.'s mood is depressed with flat affect. Pt. denies current SI/HI and denies current hallucinations. Pt. stated that he has been experiencing homelessness since 1985 and collects cans for a living. Pt. states he sleeps on [address] near his daughters job. Pt. stated that he is an alcoholic and stated it is a problem for him. SW offered alcohol rehab and pt. refused stating that he does not want to quit using alcohol. Pt. was seen by psychiatry and they prescribed Abilify and Zoloft. Pt. is a fall risk and PT. is recommending front wheel walker & B&C placement. SW discussed pt.s income. Pt. states that she currently receives SSI but he lost his wallet and is unable to access those funds at this time. DC Plan: The pt. stated that she would like to return to living on [address]. and stated he stays with his friends under the freeway [place]. SW provided pt. with homeless resources and pt. accepted them. Pt. signed homeless waiver and it was placed in the pt.s chart. DAIANA discussed with CM. Year-round shelters: [facility] [address] [place] [address] ; [facility] [address] [place] [address]; [facility] [id number] [facility] [address] Winter Shelters: [place] Provider: [facility] [place] Address: [address], [address] # of Beds: 47 Population Served: [facility] 6 | [facility] Jane Perkins Christa Provider: [facility] Address: [address] [facility], [address] # of Beds: 66 Population Served: [facility] [place] Provider: First to Serve Address: [address] [facility], [address] # of Beds: 56 Population Served: Adam Imtiaz [place] Provider: [facility] Address: [address] [facility], [address] # of Beds: 49 Population Served: [facility] SPA 8 | [facility] Provider: First to Serve Address: [address] [facility]. [place], [address] # of Beds: 37 Population Served: [facility] Hygiene: [facility]: [address] [facility] ; [facility] [address] [facility] ; [facility] [address] [facility] . Food Resources: [place] [facility] at [facility]- [address] [facility]; Meet Each Need with Dignity ([facility]) [address] [facility]; [facility] [address] [facility]; [facility] [address] [facility]. Mental Health resources provided: [facility] [address] [place], [place] [phone] ; [facility] [address] [facility] [address], [place], [place] [phone] ; [facility] Mental [facility] Urgent Care Center [address] [place] [address] ; [facility] [address] [place], [place] [phone] Healthcare Clinics: [facility] [address] [facility], [address] [place]. [place] ; [facility] [address] [facility] [address] [place] [address]; [facility] [address] [address] [phone]) [phone] Counseling--Outpatient [facility] [address] [place], [place] [address] (Specializes in in-depth psychotherapy for emotional distress: anxiety, depression, interpersonal conflicts, life transitions, childhood abuse) [facility] [address] [place] [address] (Assist with solving problem marital difficulties, separation & divorce, aging parents, & grief, chronic & terminal illness) [facility] [address] [place] [address] (Deal with loss & grief, anxiety, marital difficulties) Homebound/Mental Health Services [address] [facility] [address] [place] [address] (Provide in-home mental services to people who are incapable of leaving their homes) [facility] for Needs of the Elderly Senior Service/Resource Center [address] [place] [address] [facility] [address] [place] [address] PSYCHIATRIC OUTPATIENT SERVICES [facility] Partial Hospitalization and Intensive Outpatient Program (Managed Care and [place] Only)[address] [facility] [phone] [facility] Partial Hospitalization and Outpatient [id number] [facility]. [address] [place], [place] [phone] [facility] Mental Health Center [id number] [facility] [address] [place], [place] [phone] [facility] Partial Hospitalization and Outpatient [id number] Emel[address] [place], [phone] Substance Abuse resources provided included: [facility] Substance Abuse Self-Helpline (SASH) ; CRI -HELP [address] [facility] [phone] ; [facility] [place] [address] [facility] [address] ; [facility] [address] [facility] [place] [address] ; [facility] [place] [address] [facility] [phone] ; [facility] [address] [facility] [address] ; [facility] [address] [facility] [address] [facility] [phone] ; [facility] Substance Abuse Helpline(SAS)[facility] ; [facility] ; [facility]; [facility] [place]; [facility] [place]; I-ADARP [facility]; [facility] [place]; [facility] [place]; [facility] [place]; [facility] [place]; Alcoholics Anonymous -SFV; Dl-Pnor-Czhneit ; Marijuana Anonymous -SFV; Narcotics Anonymous www.na.org;"
[2021-01-03 11:34] LABS: CALCIUM, SERUM 9.2 mg/dL (8.5-10.1); CREATININE 0.7 mg/dL (0.6-1.3); POTASSIUM 4.1 mmol/L (3.5-5.1)
[2021-01-03 11:41] LABS: BASOPHILS # (AUTO) 0.1 K/uL (0.0-0.2); BASOPHILS % (AUTO) 0.6 % (0.0-2.0); EOSINOPHILS % (AUTO) 25.4 % (0.0-6.0); HEMATOCRIT 44 % (39-51); HEMOGLOBIN 14.9 g/dL (13.5-17.5); LYMPHOCYTES # (AUTO) 2.9 K/uL (0.8-4.8); LYMPHOCYTES % (AUTO) 20.7 % (20.0-44.0); MEAN CORPUSCULAR HGB CONC 34 g/dl (31.0-36.0); MEAN CORPUSCULAR VOLUME 88 fL (80-96); MONOCYTES # (AUTO) 1.6 K/uL (0.1-1.30); MONOCYTES % (AUTO) 11.4 % (2.0-12.0); NEUTROPHILS # (AUTO) 5.9 K/uL (1.8-8.9); NEUTROPHILS % (AUTO) 41.9 % (43.0-81.0); RED BLOOD CELL COUNT(AUTO) 5.04 MIL/uL (4.5-6.0)
--- NOTE | 2021-01-03 12:17 | NUR ---
RN NOTES PER DR. MCCLELLAN, WILL KEEP PATIENT FOR ANOTHER DAY, WBC WENT UP FROM 11.6 TO 14. WILL OBSERVE.
[2021-01-03 16:00] VITALS: BP 129/79
[2021-01-03 17:27] LABS: PLATELET COUNT (AUTO) 226 K/uL (150-450)
[2021-01-03 17:49] LABS: EOSINOPHILS % (MANUAL) 29 % (0-4); LYMPHOCYTES % (MANUAL) 16 % (16-48); MONOCYTES % (MANUAL) 8 % (0-11.0); NEUTROPHILS % (MANUAL) 47 (42-76)
--- NOTE | 2021-01-03 18:36 | NUR ---
RN CLOSING NOTE PT IS RESTING AND LYING IN BED WITH HEAD OF BED AT 30 DEGREES. RESPONDS TO NAME AND TOUCH, AOX 3, CAMEROONIAN SPEAKING, ON ROOM AIR 97% O2 SAT, RESPIRATION UNLABORED, SR HR 70S, DENIES PAIN, MICHAEL MIDLINE FLUSHES WELL, SITE CLEAR, CDI DRESSING, SKIN IS INTACT, CLEAR LIQUID, INDEPENDENT OF BED MOBILITY. USES URINAL. PER MORTGAGE CLERK, PT EXPRESSES THAT HE HAS NO DESIRE TO LIVE. FOR PSYCH EVAL TODAY. BED REST FOR NOW, BED ALARM ON, BED LOW LOCKED, SR UPX 2. CALL LIGHT WITHIN REACH, INSTRUCTED TO CALL FOR ASSIST. ALL DUE MEDICATIONS GIVEN AND PT REMAINED STABLE THROUGHOUT SHIFT. ALL PATIENT NEEDS MET. WILL ENDORSE TO MORTGAGE CLERK NURSE FOR KENNETH.
[2021-01-03 20:00] VITALS: BP 142/82
[2021-01-03] MEDS: ARIPIPRAZOLE 5 MG TABLET PO SCH (21:38)
[2021-01-04 04:00] VITALS: BP 120/74
--- NOTE | 2021-01-04 08:01 | NUR ---
PATIENT REFUSED BLOOD DRAW AND WANTS TO BE DISCHARGE COSTA JACKMAN TO GO TO [facility] MADE AWARE.
--- NOTE | 2021-01-04 08:10 | NUR ---
PATIENT AGREED TO CONTACT DAUGHTER REGARDING DC PLANNING.
--- NOTE | 2021-01-04 08:14 | NUR ---
LEFT MESSAGE TO DAUGHTER,NO RESPONSE.
[2021-01-04] MEDS: PANTOPRAZOLE 40 MG TABLET.DR PO SCH (08:32)
[2021-01-04] MEDS: LEVOTHYROXINE SODIUM 25 MCG TABLET PO SCH (08:33)
[2021-01-04] MEDS: SERTRALINE HCL 25 MG TABLET PO SCH (08:33)
[2021-01-04] MEDS: FOLIC ACID 1 MG TABLET PO SCH (08:33)
[2021-01-04] MEDS: LEVETIRACETAM (250 MG) 250 MG TABLET PO SCH (08:43)
[2021-01-04] MEDS: THIAMINE HCL 100 MG TABLET PO SCH (09:14)
[2021-01-04 10:26] VITALS: BP 148/80
--- NOTE | 2021-01-04 13:53 | NUR ---
PATIENT ADVISED TO STAY IN HOSPITAL TO RECEIVE CARE, DEMANDED TO LEAVE AGAINST MEDICAL ADVICE, IV SITE D/C CLEANED AND GAUZE / PRESSURE APPLIED NO BLEEDING NOTED CLOTTED WELL AND BANDAGE APPLIED, EDUCATED CONSEQUENCES OF LEAVING AMA AND DEMANDED TO LEAVE, USED [facility]ALKER TO AMBULATE ON OWN OUTSIDE ACCOMPANIED BY TWO RN'S TO OUTSIDE, GIVEN TAP PASS FOR VELVET, DRESSED WITH OWN SHOES AND OWN CLOTHES, AMBULATED VERY WELL WITH WALKER ON OWN, TRIED CALLING DAUGHTER NO ANSWER , MED AIDE TRIED CALLING DAUGHTER WELL AND NO ANSWER, THE DAUGHTER NEVER CALLED BACK, PATIENT REFUSED CARE AND DEMANDED TO LEAVE AMA. SAFE TRANSFER FROM BED TO OUTSIDE AREA AND AMBULATED ON OWN TO BUS STOP WITH WALKER, OBSERVED STANDING AT BUS STOP ON [address] [address] ABLE TO USE BUS PASS.
== END 2021-01-04 11:23 | disposition left against medical advice (07) | DRG 53 ==
LOC: ER 15:41 → UNDOADMIN 01-01 02:51 → TRANSITION 01-01 02:51 → TELE1 01-01 07:01 → MEDSG1 01-02 12:16
PROVIDERS: ADMIT Registered Nurse; ATTEND Family Medicine
PROC: 05HC33Z Insertion of Infusion Device into Left Basilic Vein, Percutaneous Approach (ICD-10-PCS; principal; 2021-01-01)
DX: G40.509 Epileptic seizures related to external causes, not intractable, without status epilepticus (principal); G92.8 Other toxic encephalopathy; D72.10 Eosinophilia, unspecified; E87.1 Hypo-osmolality and hyponatremia; G93.89 Other specified disorders of brain; E86.1 Hypovolemia; R29.6 Repeated falls; E03.9 Hypothyroidism, unspecified; Z59.00 Homelessness unspecified; Z20.822 Contact with and (suspected) exposure to COVID-19; Z98.890 Other specified postprocedural states; F39 Unspecified mood [affective] disorder; Y90.0 Blood alcohol level of less than 20 mg/100 ml; F10.139 Alcohol abuse with withdrawal, unspecified
CPT/HCPCS: 36415; 70450-TC; 71045-TC; 73080-TC; 80048-TC; 80061-TC; 80076-TC; 80177; 81001; 83605-TC; 83735-TC; 83880; 84100-TC; 84439-TC; 84443-TC; 84484-TC; 85025-TC; 85730-TC; 87040-TC; 87081-TC; 93307-TC; 93880-TC; 97112-TC; 97116-TC; 97530-TC; C9113; G0378; G0480; J1953; J3411; J3490; J7030; J7040; J7060; U0003

== ENCOUNTER 2021-11-09 12:53 | Emergency (ER) | payer MEDICAID ==
[~2021-11-09] VITALS: Ht 165.1 cm; Wt 68.0 kg
[2021-11-09] MEDS ORDERED: LEVETIRACETAM (500MG) 500 MG in IV NS 0.9% 100 ML IV SCH (13:30)
--- NOTE | 2021-11-09 13:35 | NUR ---
IV LINE ESTABLISHED ON LEFT HAND #22, BLOOD DRAWN AND SENT TO LAB
[2021-11-09 13:44] LABS: BASOPHILS % (AUTO) 0.2 % (0.0-2.0); EOSINOPHILS % (AUTO) 1.9 % (0.0-6.0); HEMATOCRIT 44 % (39-51); HEMOGLOBIN 14.8 g/dL (13.5-17.5); LYMPHOCYTES # (AUTO) 0.7 K/uL (0.8-4.8); LYMPHOCYTES % (AUTO) 5.6 % (20.0-44.0); MEAN CORPUSCULAR HGB CONC 33 g/dl (31.0-36.0); MEAN CORPUSCULAR VOLUME 88 fL (80-96); MONOCYTES # (AUTO) 1.1 K/uL (0.1-1.30); NEUTROPHILS # (AUTO) 11.1 K/uL (1.8-8.9); NEUTROPHILS % (AUTO) 84.3 % (43.0-81.0); PLATELET COUNT (AUTO) 218 K/uL (150-450); RED BLOOD CELL COUNT(AUTO) 5.04 MIL/uL (4.5-6.0); WHITE BLOOD COUNT (AUTO) 13.1 K/uL (4.3-11.0)
[2021-11-09 13:57] LABS: CALCIUM, SERUM 8.7 mg/dL (8.5-10.1); CARBON DIOXIDE 26 mmol/L (21-32); CHLORIDE 100 mmol/L (98-107); CREATININE 0.8 mg/dL (0.6-1.3); GLUCOSE 107 mg/dL (74-106); SODIUM SERUM 133 mmol/L (136-145); UREA NITROGEN, BLOOD 6 mg/dL (7-18)
[2021-11-09 14:04] LABS: ALANINE AMINOTRANSFERASE 25 U/L (12-78); ALBUMIN 3.8 g/dL (3.4-5.0); ALKALINE PHOSPHATASE 76 U/L (46-116); ASPARTATE AMINOTRANSFERASE 18 U/L (15-37); BILIRUBIN,DIRECT 0.1 mg/dL (0.0-0.2); BILIRUBIN,TOTAL 0.5 mg/dL (0.2-1.0); TOTAL PROTEIN, SERUM 7.6 g/dL (6.4-8.2)
[2021-11-09] MEDS ORDERED: IBUPROFEN 600 MG TABLET ONE (14:29)
[2021-11-09] MEDS ORDERED: ACETAMINOPHEN ES 500 MG TABLET ONE (14:29)
[2021-11-09] MEDS ORDERED: IBUPROFEN 600 MG TABLET PO ONE (14:30)
[2021-11-09] MEDS ORDERED: ACETAMINOPHEN ES 500 MG TABLET PO ONE (14:30)
--- NOTE | 2021-11-09 14:39 | NUR ---
PT TAKEN TO RADIOLOGY VIA [facility]
--- NOTE | 2021-11-09 15:35 | NUR ---
URINE SAMPLE COLLECTED AND SENT TO LAB
[2021-11-09 15:40] LABS: BILIRUBIN,URINE NEGATIVE (NEGATIVE); COLOR,URINE YELLOW (YELLOW); LEUKOCYTE ESTERASE ,URINE NEGATIVE (NEGATIVE); NITRITE, URINE NEGATIVE (NEGATIVE); PROTEIN,URINE NEGATIVE (NEGATIVE); UGLUCOSE NEGATIVE (NEGATIVE); UROBILINOGEN,URINE 0.2 EU/dL (0.2)
--- NOTE | 2021-11-09 17:26 | NUR ---
ETA 1800 BLS TRANSPORT [facility].
--- NOTE | 2021-11-09 17:56 | NUR ---
IV removed. Catheter intact and site benign. Pressure and 4x4 applied to site. No bleeding noted.
--- NOTE | 2021-11-09 18:08 | NUR ---
PATIENT REPORT GIVEN TO AUDREY PELAEZ
--- NOTE | 2021-11-09 18:09 | NUR ---
EMT AT BEDSIDE TO SECURITY AGENT PT; ENDORSEMENT GIVEN.
--- NOTE | 2021-11-09 18:12 | NUR ---
PT UNABLE TO SIGN D/C INSTRUCTIONS; FORM SIGNED BY ME AND WITNESSED BY ANOTHER AUDREY UREÑA.
[2021-11-09 18:35] VITALS: BP 116/70
--- NOTE | 2021-11-09 18:36 | NUR ---
Patient discharged to [facility], in stable condition, accompanied by 2 chef de froid. Written and verbal after care instructions given.
== END 2021-11-09 18:36 ==
LOC: ER 12:55
DX: B34.9 Viral infection, unspecified (principal); R40.4 Transient alteration of awareness; M54.2 Cervicalgia
CPT/HCPCS: 99285; 72125; 96365; 71045; 93005; 70450; 85025; 80048; 83605 ×2; 80076; 81003; 36415; 85730; 87081; 87040 ×2; J7030; J1953

== ENCOUNTER 2021-12-30 06:44 | Emergency (ER) | payer MEDICAID ==
[~2021-12-30] VITALS: Ht 165.1 cm; Wt 65.8 kg
--- NOTE | 2021-12-30 06:55 | NUR ---
[id number] FROM [facility] FOR RIGHT ARM AND BILATERAL LEG PAIN. DENIES ANY TRUAMA . PT A/OX3; FRENCH SPEAKING. TOLERATING R/A WELL WITH NO RESP DISTRES.. SAFETY MEASURES IN PLACE. VSS.
--- NOTE | 2021-12-30 10:14 | NUR ---
CALLED [facility] AND SPOKE WITH JAYSHREE TO SET UP BLS TRANSPORT BACK TO [facility]. ETA IS 45-60 MIN
--- NOTE | 2021-12-30 11:00 | NUR ---
Patient discharged to [address] [facility] in stable condition. Written and verbal after care instructions given. Patient verbalizes understanding of instruction. Patient transported from ER on gurney accompanied by 2 it manager. Patient stable at time of discharge.
[2021-12-30 12:28] VITALS: BP 128/66
== END 2021-12-30 11:00 ==
LOC: ER 06:51
DX: G89.29 Other chronic pain (principal); M25.521 Pain in right elbow; S52.121D Displaced fracture of head of right radius, subsequent encounter for closed fracture with routine healing; X58.XXXD Exposure to other specified factors, subsequent encounter
CPT/HCPCS: 73080-TC; 73630-TC

== ENCOUNTER 2022-04-08 19:54 | Emergency (ER) | payer MEDICAID ==
[~2022-04-08] VITALS: Ht 167.6 cm; Wt 66.7 kg
--- NOTE | 2022-04-08 20:40 | NUR ---
IV CANNULA G20 INSERTED ON RIGHT INNER WRIST. BLOOD DRAWN AND SENT TO LAB
[2022-04-08] MEDS ORDERED: ALBUTEROL FS 2.5 MG/3 ML VIAL.NEB ONE ×2 (20:47→23:07)
[2022-04-08] MEDS ORDERED: IPRATROPIUM NEB FS 0.5 MG/2.5 ML AMPUL.NEB ONE ×2 (20:47→23:07)
[2022-04-08] MEDS ORDERED: methylPREDNISolone SOD SUCC 125 MG/2ML VIAL ONE (20:49)
[2022-04-08 20:50] LABS: BASOPHILS # (AUTO) 0.1 K/uL (0.0-0.2); BASOPHILS % (AUTO) 0.8 % (0.0-2.0); EOSINOPHILS % (AUTO) 18.7 % (0.0-6.0); HEMATOCRIT 45 % (39-51); HEMOGLOBIN 14.7 g/dL (13.5-17.5); LYMPHOCYTES # (AUTO) 2.1 K/uL (0.8-4.8); LYMPHOCYTES % (AUTO) 26.8 % (20.0-44.0); MEAN CORPUSCULAR HGB CONC 32 g/dl (31.0-36.0); MEAN CORPUSCULAR VOLUME 91 fL (80-96); MONOCYTES # (AUTO) 1.4 K/uL (0.1-1.30); MONOCYTES % (AUTO) 17.6 % (2.0-12.0); NEUTROPHILS # (AUTO) 2.8 K/uL (1.8-8.9); NEUTROPHILS % (AUTO) 36.1 % (43.0-81.0); PLATELET COUNT (AUTO) 184 K/uL (150-450); WHITE BLOOD COUNT (AUTO) 7.8 K/uL (4.3-11.0)
[2022-04-08] MEDS ORDERED: IPRATROPIUM NEB FS 0.5 MG/2.5 ML AMPUL.NEB NEB ONE ×2 (21:00→22:30)
[2022-04-08] MEDS ORDERED: methylPREDNISolone SOD SUCC 125 MG/2ML VIAL IV ONE (21:00)
[2022-04-08] MEDS ORDERED: ALBUTEROL FS 2.5 MG/3 ML VIAL.NEB NEB ONE ×2 (21:00→22:30)
[2022-04-08 21:05] LABS: CALCIUM, SERUM 9.3 mg/dL (8.5-10.1); CARBON DIOXIDE 25 mmol/L (21-32); CHLORIDE 101 mmol/L (98-107); CREATININE 0.7 mg/dL (0.6-1.3); GLUCOSE 74 mg/dL (74-106); POTASSIUM 4.2 mmol/L (3.5-5.1); SODIUM SERUM 134 mmol/L (136-145); UREA NITROGEN, BLOOD 6 mg/dL (7-18)
[2022-04-08 21:08] LABS: ALANINE AMINOTRANSFERASE 19 U/L (12-78); ALBUMIN 3.4 g/dL (3.4-5.0); ALKALINE PHOSPHATASE 78 U/L (46-116); ASPARTATE AMINOTRANSFERASE 17 U/L (15-37); BILIRUBIN,DIRECT 0.1 mg/dL (0.0-0.2); BILIRUBIN,TOTAL 0.3 mg/dL (0.2-1.0); TOTAL PROTEIN, SERUM 7.3 g/dL (6.4-8.2)
[2022-04-08 22:12] LABS: BAND % (MANUAL) 1 % (0.0-5.0); EOSINOPHILS % (MANUAL) 20 % (0-4); LYMPHOCYTES % (MANUAL) 25 % (16-48); MONOCYTES % (MANUAL) 15 % (0-11.0); NEUTROPHILS % (MANUAL) 39 (42-76)
--- NOTE | 2022-04-08 22:24 | NUR ---
John manrique in [facility] - 04/08/22 at 2303 by MELINA JOVANY LIRA
[2022-04-08] MEDS ORDERED: PRED50TA PO (22:26)
[2022-04-08] MEDS ORDERED: ALBU6.7H9 INH (22:26)
--- NOTE | 2022-04-09 00:23 | NUR ---
REPORT GIVEN TO [id number]
[2022-04-09 00:29] VITALS: BP 104/59
--- NOTE | 2022-04-09 00:29 | NUR ---
Patient discharged to home in stable condition. Written and verbal after care instructions given. Patient verbalizes understanding of instruction.
== END 2022-04-09 01:03 ==
LOC: ER 19:55
DX: R07.89 Other chest pain (principal); J98.01 Acute bronchospasm; Z79.899 Other long term (current) drug therapy
CPT/HCPCS: 99285; 96374; 71045; 93005 ×2; 85025; 80048; 80076; 36415; 84484; 94799; 85007; 94640 ×3; J2930